=== PATIENT | male | born 1950 ===

== ENCOUNTER → 2017-05-06 | Outpatient (CLI) | payer OTHER | END | disposition home or self-care (01) | LOC: RAD 16:37 → EDBD 16:37 | DX: M16.0 Bilateral primary osteoarthritis of hip (principal) ==

== ENCOUNTER 2019-10-17 23:02 | Emergency (ER) | payer OTHER ==
[~2019-10-17] VITALS: Ht 175.3 cm; Wt 107.0 kg
== END 2019-10-18 01:22 | disposition home or self-care (01) ==
LOC: ER 23:02
DX: R53.81 Other malaise (principal); Z03.818 Encounter for observation for suspected exposure to other biological agents ruled out